=== PATIENT | male | born 1950 | race Caucasian/White ===

== ENCOUNTER 2021-09-25 07:54 | Emergency (ER) | payer MEDICARE, SELFPAY ==
[2021-09-25 08:02] VITALS: BP 172/99; PULSE 90; RESP 20; TEMP 36.6; O2SAT 98; BMI 28.1
[2021-09-25 08:13] VITALS: BP 172/99; PULSE 77; RESP 20; TEMP 37; O2SAT 96
--- NOTE | 2021-09-25 08:14 | XRR_ITS ---
PROCEDURE INFORMATION: Exam: XR Chest Exam date and time: 09/25/2021 8:14 AM Age: 70 years old Clinical indication: Dyspnea/cough TECHNIQUE: Imaging protocol: XR of the chest. Views: 1 view. COMPARISON: No relevant prior studies available. FINDINGS: Lungs: No focal peripheral lung consolidation, air bronchogram formation, or silhouette sign. Pleural spaces: No pleural effusion or pneumothorax. Heart/Mediastinum: The cardiac silhouette is not enlarged. The mediastinal contours are normal. Bones/joints: No acute osseous abnormality. XR/XR chest 1V portable [id number] IMPRESSION: No sign of pneumonia. Radiation Dose CTDIVOL = (mGy): DLP = (mGy-cm)
--- NOTE | 2021-09-25 08:16 | ED_ITS ---
HPI - Animal Bite General: Chief Complaint: Animal Bite Stated Complaint: SPIDER BITE ON ABD/CONGESTION Time Seen by Provider: 09/25/21 07:55 History of Present Illness: HPI narrative: 70 male presents emergency room complaining of a reddened erythematous area on the left upper quadrant of the abdomen. He was cleaning out the garage a few days ago was very lior there were several spiders he thinks he was bitten by a spider it began to get red and inflamed. In addition to that he has developed quite a bit of upper respiratory congestion and cough but has not had any fever sweats or chills. He is not previously has Covid but he has been vaccinated. No chest pain or discomfort. No drainage from the area on the abdomen and is reddened mildly swollen but not had any pustules or vesicles or drainage. 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 and is chronically on Advair and a rescue albuterol inhaler as needed MD complaint: animal bite Onset (ago): day(s) Location: abdomen Associated symptoms: Deny chills or fever(s) Review of Systems Const: Denies: fever(s), chills, body aches, change in appetite, fatigue or malaise ENMT: Reports: nasal discharge and nasal congestion; Denies: throat pain or ear or mastoid pain Card: Denies: chest pain, edema, dyspnea on exertion or orthopnea Resp: Denies: dyspnea, productive cough or non-productive cough GI: Denies: abdominal pain, nausea, vomiting, hematemesis, coffee ground emesis, diarrhea, constipation, bloating, hematochezia or melena : Denies: flank pain, dysuria, urinary frequency or urinary urgency Skin/Breast: Denies: rash or pruritus PFSH ED PFSH: Social History Smoking and tobacco status: former smoker Physical Exam Const: COMMON NORMALS: no acute distress GENERAL APPEARANCE: cooperative and comfortable ORIENTATION/CONSCIOUSNESS: Yes awake HENMT: COMMON NORMALS: normocephalic, atraumatic and hearing grossly normal bilaterally HEAD & SCALP: normocephalic and atraumatic Neck/C-Spine: COMMON NORMALS: no JVD Resp: COMMON NORMALS: normal respiratory effort, No retractions, No use of accessory muscles and clear to auscultation bilaterally AUSCULTATION: clear to auscultation bilaterally Cardio: COMMON NORMALS: no JVD, regular rate, regular rhythm and No murmurs present (Cardio) RATE: regular rate RHYTHM: regular rhythm GI: COMMON NORMALS: Soft to palpation and No hepatosplenomegaly present AUSCULTATION: Yes normoactive bowel sounds PALPATION: Yes Soft to palpation, No Tenderness to palpation present (GI), No Guarding due to palpation present (GI) and Yes No hepatosplenomegaly present Extremity: COMMON NORMALS: normal to inspection, capillary refill normal, no clubbing, cyanosis or edema, no calf tenderness and no pedal edema Skin: OTHER: Abdominal wall there are some mild erythematous area in the left upper quadrant no vesicles no eschar no central necrosis although there is a very small area of what appears to be almost like a pinpoint area of ecchymosis. Superiorly there is little bit of superficial lymphatic streaking to the lower portion of the left chest. There are no vesicles. Course Vital Signs: Vital signs: Vital Signs Temperature 98.6 F 09/25/21 08:13 Pulse Rate 77 09/25/21 08:13 Respiratory Rate 20 H 09/25/21 08:13 Blood Pressure 172/99 09/25/21 08:13 Pulse Oximetry 96 09/25/21 08:13 MDM - Animal Bite MDM Narrative: Medical decision making narrative: Patient does have a mild cellulitis. I think the exposure to the dust also exacerbated what ever form of underlying COPD he has. We will start him on some steroids and antibiotics continue. His rescue inhaler. He may have secondarily been exposed to Covid. To the extent that he may have that it is very mild he has previously been vaccinated sats are good and is not having respiratory difficulty he does have a fair amount of upper respiratory congestion that may also be from the dust exposure. We will swab him with a PCR. Discharge Plan Discharge Patient Disposition: Home Clinical Impression: Cellulitis, COPD with acute exacerbation Condition: Stable Prescriptions: New Medrol (Camilo) 4 mg tablets,dose pack See Rx Instructions .ROUTE .COMPLEX Qty: 21 RF: 0 Bactrim DS 800-160 mg tablet 1 tab PO DAILY 7 Days Qty: 14 RF: 0 No Action Advair HFA 230-21 mcg/actuation HFA aerosol inhaler 2 puff inhalation BID RF: 0 Discharge Orders: Discharge ED (Routine); Ordered 09/25/21 Ordered By: Manuel Hoff Patient Instructions: Opioid Safety Activity Restrictions/Additional Instructions: If not improving in the next 3 to 4 days to follow-up with your primary care doctor or return to the emergency room. Coding Level of Care Code ED Computer Support Analyst for [employer] Exam Detailed
[2021-09-25 09:02] VITALS: BP 161/99; PULSE 77; RESP 19; TEMP 36.8; O2SAT 97
[2021-09-26 15:30] LABS: Coronavirus Test Green County Not Detected
== END 2021-09-25 09:04 | disposition home or self-care (01) ==
PROVIDERS: Emergency Provider Family Medicine
DX: L03.90 Cellulitis, unspecified (principal); J44.1 Chronic obstructive pulmonary disease with (acute) exacerbation; Z87.891 Personal history of nicotine dependence
CPT/HCPCS: 71045; 87635; 99282

== ENCOUNTER → 2022-02-21 11:04 | Outpatient (BNVA) | payer MEDICARE, SELFPAY | PROVIDERS: PCP Family Medicine; Referring Provider Family Medicine; Visit Provider Specialist | DX: G56.02 Carpal tunnel syndrome, left upper limb (principal) | CPT/HCPCS: 95909 ==

== ENCOUNTER 2025-09-28 07:43 | Outpatient (CLI) | payer OTHER, SELFPAY ==
--- NOTE | 2025-09-28 07:50 | MR_ITS ---
WS: [id number] MRI BILATERAL HIPS WITHOUT CONTRAST. COMPARISON: LEFT hip radiograph 08/06/2025 Multiplanar, multisequence imaging is performed without contrast. No acute marrow edema or fractures involving the pelvis or hips. Moderate bilateral narrowing of the hip joints. Mild osteophytic ridging around the acetabulum. Subchondral cyst in the lateral RIGHT acetabulum measures 6 mm. No joint effusion. No evidence for trochanteric bursitis. No muscle atrophy or edema. Fat-containing bilateral inguinal canals. Minimally distended urinary bladder. No free fluid in the pelvis. MR/[place] hips [place] con [id number] IMPRESSION: 1. Moderate bilateral narrowing of the hip joints with loss of cartilage in os teophytic ridging. 2. No acute fractures. 3. 6 mm lateral RIGHT subchondral acetabular cyst. 4. No trochanteric bursitis.
== END 2025-09-28 07:44 | disposition home or self-care (01) ==
LOC: RAD 07:45
PROVIDERS: PCP Family Medicine; Visit Provider Family Medicine Geriatric Medicine
DX: M25.752 Osteophyte, left hip (principal); M25.751 Osteophyte, right hip; M71.39 Other bursal cyst, multiple sites
CPT/HCPCS: 73721